=== PATIENT | male | born 1950 | race Two or more races ===

== ENCOUNTER 2023-11-12 18:46 | Emergency (ER) | payer MEDICARE ==
[~2023-11-12] VITALS: Ht 182.9 cm; Wt 90.7 kg
[2023-11-12] MEDS ORDERED: LIDOCAINE 1%-EPI 1:100,000 20 ML VIAL ONE (20:00)
[2023-11-12] MEDS: LIDOCAINE 1%-EPI 1:100,000 20 ML VIAL TP ONE (20:26)
[2023-11-12 21:04] VITALS: BP 147/77; TEMP 98.6; O2SAT 95
== END 2023-11-12 21:05 | disposition home or self-care (01) ==
LOC: ER 18:46
DX: S01.81XA Laceration without foreign body of other part of head, initial encounter (principal); W01.198A Fall on same level from slipping, tripping and stumbling with subsequent striking against other object, initial encounter; Y93.89 Activity, other specified; Y92.098 Other place in other non-institutional residence as the place of occurrence of the external cause; Y99.8 Other external cause status
CPT/HCPCS: 99284; 72125; 12011; 70450; A6403; J3490